=== PATIENT | male | born 1985 | race African-American/Black ===

== ENCOUNTER 2017-01-02 05:57 | Emergency (ER) | payer BC, MEDICAID ==
[~2017-01-02] VITALS: Ht 193 cm; Wt 117.9 kg
[2017-01-02 08:00] VITALS: BP 148/84
[2017-01-02] MEDS ORDERED: cefTRIAXone SOD 1,000 MG VL IM ONE (08:30)
== END 2017-01-02 08:57 | disposition home or self-care (01) ==
LOC: ER 05:59
DX: J03.90 Acute tonsillitis, unspecified (principal)
CPT/HCPCS: 96372; 99283; J0696